=== PATIENT | female | born 1980 | race Caucasian/White ===

== ENCOUNTER 2018-02-23 05:12 | Emergency (ER) | payer OTHER ==
[~2018-02-23 05:12] MED LIST: PREDNISONE 20MG20 MG PO; VISTARIL25 MG PO
--- NOTE | 2018-02-23 05:49 | ED GENERAL ADULT ---
History of Present Illness General Chief Complaint: Abdominal Pain/Flank Pain Stated Complaint: L FLANK PAIN Source: patient Exam Limitations: no limitations Allergies Coded Allergies: NO KNOWN ALLERGIES (05/14/13) Triage Nurses Notes Reviewed? yes Onset: Abrupt Duration: hour(s): Timing: recent history HPI: 02/23/18 5:18 AM 38-year-old female presents to the emergency department with sudden onset of left-sided flank pain. According to the patient she was in her usual state of health until earlier this morning when she developed severe left-sided flank pain. She took 3 Advil with some relief. She does admit to some urinary hesitancy. She denies any fever. She admits to nausea. (Clay Sow DO) Vital Signs & Intake/Output Vital Signs & Intake/Output Vital Signs Date Time Temp Pulse Resp B/P B/P Pulse O2 O2 Flow FiO2 Mean Ox Delivery Rate 02/23 0644 97.7 88 24 136/61 99 Room Air 02/23 0641 99 Room Air 02/23 0521 97.7 98 22 151/100 Reconcile Medications Hydrocodone/Acetaminophen ([place] 5-325 Tablet) 5 MG-325 MG TABLET 1 TAB PO Q6P PRN KIDNEY STONE Hydroxyzine Pamoate (Vistaril) 25 MG CAP 1 CAP PO TID PRN ALLERGIC REACTION TAKE 1 TABLET NEEDED FOR ITCHING OR SWELLING Ketorolac Tromethamine 10 MG TABLET 1 TAB PO Q6P PRN KIDNEY STONE PATIENT RECEIVED IM KETOROLAC IN THE EMERGENCY DEPARTMENT Ondansetron (Zofran Odt) 4 MG TAB.RAPDIS 1 TAB SL TID NAUSEA Prednisone 20 MG TAB 2 TAB PO DAILY ALLERGIC REACTION TAKE 2 TABLETS DAILY FOR 5 DAYS. FIRST DOSE START TOMORROW (Ami SEE,Clay Chapa) Past History Travel History Traveled to [place] past 21 day No Medical History Any Pertinent Medical History? 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 No (Clay Sow DO) Review of Systems Review of Systems Constitutional: Denies: fever. EENTM: Denies: visual changes. Respiratory: Denies: short of breath. Cardiovascular: Denies: chest pain. GI: Reports: abdominal pain. Genitourinary: Reports: dysuria, hesitation. Musculoskeletal: Reports: back pain. Skin: Reports: no symptoms. Neurological/Psychological: Reports: no symptoms. Hematologic/Endocrine: Reports: no symptoms. Immunologic/Allergic: Reports: no symptoms. (Clay Sow DO) Physical Exam Physical Exam General Appearance: well developed/nourished, alert, awake, anxious, moderate distress Head: atraumatic, normal appearance Eyes: Bilateral: normal appearance, PERRL, EOMI. Ears, Nose, Throat: normal pharynx, normal ENT inspection, hearing grossly normal Neck: normal inspection, supple Respiratory: normal breath sounds, chest non-tender, no respiratory distress Cardiovascular: regular rate/rhythm Peripheral Pulses: 4+ radial (R), 4+ radial (L) Gastrointestinal: non-tender Back: CVA tenderness (L) Extremities: no edema Neurologic/Psych: no motor/sensory deficits, awake, alert, oriented x 3 Skin: intact, normal color, warm/dry Core Measures ACS in differential dx? No CVA/TIA Diagnosis: No Sepsis Present: No Sepsis Focused Exam Completed? No (Clay Sow DO) Progress Differential Diagnoses I considered the following diagnoses in my evaluation of the patient: [ Ureterolithiasis, pyelonephritis, diverticulitis] Initial ED EKG: none (Clay Sow DO) Plan of Care: Orders Procedure Date/time Status URINE 02/23 05 Complete URINALYSIS 02/23 05 Complete LIPASE 02/23 05 Complete COMPREHENSIVE METABOLIC PANEL 02/23 05 Complete CBC WITHOUT DIFFERENTIAL 02/23 543 Complete Current Medications Sig/Nadya Start time Last Medication Dose Stop Time Status Admin Ondansetron HCl 4 MG ONCE ONE 02/23 0800 AC (Zofran) 02/23 0801 Laboratory Tests 02/23/18 0554: Urinalysis LIGHT H, Urine Color STRAW, Urine Clarity CLEAR, Urine pH 6.0, Ur Specific [place] 1.025, Urine Protein NEG, Urine Ketones NEG, Urine Nitrite NEG, Urine Bilirubin NEG, Urine Urobilinogen 0.2, Ur Leukocyte Esterase TRACE H, Ur Microscopic SEDIMENT EXAMINED, Urine RBC 5-10 H, Urine WBC 1-3 H, Ur Epithelial Cells MANY H, Urine Bacteria MOD H, Urine Mucus MOD H, Urine Hemoglobin MOD H, Urine Glucose NEG, Urine Test NEGATIVE 02/23/18 0545: Anion Gap 12, Estimated GFR > 60, BUN/Creatinine Ratio 22.9, Glucose 99, Calcium 9.1, Total Bilirubin 0.6, AST 21, ALT 29, Alkaline Phosphatase 40, Total Protein 6.9, Albumin 3.9, Globulin 3.0, Albumin/Globulin Ratio 1.3, Lipase 88, CBC w Diff NO MAN DIFF REQ, RBC 4.16 L, MCV 96.3, MCH 32.8 H, MCHC 34.1, RDW 12.4, MPV 7.7, Gran % 50.8, Lymphocytes % 38.6, Monocytes % 6.2, Eosinophils % 3.9, Basophils % 0.5, Absolute Granulocytes 3.1, Absolute Lymphocytes 2.3, Absolute Monocytes 0.4, Absolute Eosinophils 0.2, Absolute Basophils 0 (Ami SEE,Clay Chapa) Departure Departure Disposition: STILL A PATIENT Condition: Stable Referrals: Donnie SEE,Antonio Horton (PCP/Family) Departure Forms: Customer Survey General Discharge Information Comments The patient was signed out to Dr. Mueller at 7 AM. PATIENT: GARCIA VARGAS PRESENT AGE: 38 PATIENT ACCOUNT NO: [id number] : 81 LOCATION: [facility] ORDERING PHYSICIAN: Clay Sow DO SERVICE DATE: 02/23/18 EXAM TYPE: CAT - CT ABD & PELVIS W/O IV CONTRAS EXAMINATION: CT ABDOMEN AND PELVIS WITHOUT CONTRAST CLINICAL INFORMATION: Abdominal pain. Renal colic. COMPARISON: None TECHNIQUE: Multidetector volumetric imaging was performed from the superior aspect of the liver through the pubic symphysis. Sagittal and coronal reformatted images were obtained on the technologist's workstation. DLP: 277.65 mGy-cm FINDINGS: LUNG BASES: The visualized lung bases are unremarkable. LIVER, GALLBLADDER, AND BILIARY TREE: The liver is normal in size, shape, and attenuation. No focal hepatic lesion or biliary ductal dilatation is present. The gallbladder is unremarkable with no evidence of radiopaque gallstones, gallbladder wall thickening, or obvious pericholecystic inflammatory changes. PANCREAS: Unremarkable. SPLEEN: Unremarkable. ADRENAL GLANDS: Unremarkable. KIDNEYS AND URETERS: There is mild left hydroureteronephrosis. A calcification in the region of the ureterovesical junction is consistent with obstructing calculus measuring 0.3 cm. No intrarenal calculi are demonstrated. The right kidney is unremarkable. No focal parenchymal abnormality is demonstrated. BLADDER: The bladder is decompressed. No abnormality is seen. GASTROINTESTINAL TRACT: The stomach and duodenum are unremarkable. No abnormality of the small bowel or mesentery is demonstrated. There is moderate stool through the course the colon. The colon is otherwise unremarkable. The appendix is normal. ABDOMINAL WALL: No significant hernia is appreciated. LYMPH NODES: Normal. VASCULAR: Limited assessment without contrast. No abnormality is seen. PELVIC VISCERA: Unremarkable. OSSEOUS STRUCTURES: Unremarkable. IMPRESSION: 1. Obstructing 0.3 cm calculus at the left UVJ with mild hydroureteronephrosis. 2. No other abnormality. DICTATED BY: Génesis Paula MD DATE/TIME DICTATED:02/23/18716 NEUROSURGERY PHYSICIAN:GARRETT DATE/TIME TRANSCRIBED:02/23/18716 CONFIDENTIAL, DO NOT COPY WITHOUT APPROPRIATE AUTHORIZATION. <Electronically signed in Other Vendor System> SIGNED BY: Génesis Paula MD [id number] (Clay Sow DO) Departure Clinical Impression Primary Impression: Renal colic on left side Additional Instructions: You have a left kidney stone. Ketorolac as needed for pain. Add [place] if necessary. Follow-up with your primary care physician or the urologist listed this week for reevaluation. Return if any concerns or sudden worsening. Please note that there might be incidental findings in your evaluation that are unrelated to the current emergency department visit. Please notify your primary care doctor about this emergency department visit in order to obtain and review all of the testing performed so that these incidental findings can be monitored as needed. If you had an x-ray performed, please understand that some fractures or other findings may not be seen on the initial set of x-rays. If your symptoms persist you might need a repeat set of x-rays to check for such a fracture. If you had a laceration evaluated, please understand that foreign bodies such as glass or wood may not be visible to the naked eye or on plain x-rays. If the wound becomes red, swollen, increasingly more painful or if there is any drainage from the wound, please have it reevaluated by a physician for the possibility of a retained foreign body. If you're unable to follow up as outlined in the discharge instructions please return to the emergency department. Thank you for choosing the [facility] Emergency Department for your care. It was a pleasure to serve you today. Clay Mueller M.D. [facility] Prescriptions: Current Visit Scripts Ketorolac Tromethamine 1 TAB PO Q6P PRN KIDNEY STONE #16 TAB PATIENT RECEIVED IM KETOROLAC IN THE EMERGENCY DEPARTMENT Hydrocodone/Acetaminophen ([place] 5-325 Tablet) 1 TAB PO Q6P PRN KIDNEY STONE #20 TAB Ondansetron (Zofran Odt) 1 TAB SL TID #10 TAB (Ami SEE,Clay Chapa) Critical Care Note Critical Care Note Critical Care Time: non-applicable (Clay Sow DO)
[2018-02-23 05:54] LABS: ABSOLUTE BASOPHIL COUNT 0 /CUMM (0.0-0.2); ABSOLUTE EOSINOPHIL COUNT 0.2 /CUMM (0.0-0.7); ABSOLUTE GRANULOCYTE CT 3.1 /CUMM (1.4-6.5); ABSOLUTE LYMPH COUNT 2.3 /CUMM (1.2-3.4); ABSOLUTE MONOCYTE COUNT 0.4 /CUMM (0.10-0.60); BASOPHIL % 0.5 % (0.0-2.0); EOSINOPHIL % 3.9 % (0-5); GRANULOCYTE % 50.8 % (42.2-75.2); MEAN CORPUSCULAR HGB 32.8 PG (27.0-31.0); MEAN CORPUSCULAR HGB CONC 34.1 G/DL (33.0-37.0); MEAN CORPUSCULAR VOLUME 96.3 FL (81.0-99.0); MEAN PLATELET VOLUME 7.7 FL (7.4-10.4); PLATELET COUNT 318 /CUMM (130-400); RBC DISTRIBUTION WIDTH 12.4 % (11.5-14.5); RED BLOOD CELL CT 4.16 /CUMM (4.20-5.40)
[2018-02-23 06:44] VITALS: BP 136/61
--- NOTE | 2018-02-23 07:34 | CT SCAN REPORT ---
EXAMINATION: CT ABDOMEN AND PELVIS WITHOUT CONTRAST CLINICAL INFORMATION: Abdominal pain. Renal colic. COMPARISON: None TECHNIQUE: Multidetector volumetric imaging was performed from the superior aspect of the liver through the pubic symphysis. Sagittal and coronal reformatted images were obtained on the technologist's workstation. DLP: 277.65 mGy-cm FINDINGS: LUNG BASES: The visualized lung bases are unremarkable. LIVER, GALLBLADDER, AND BILIARY TREE: The liver is normal in size, shape, and attenuation. No focal hepatic lesion or biliary ductal dilatation is present. The gallbladder is unremarkable with no evidence of radiopaque gallstones, gallbladder wall thickening, or obvious pericholecystic inflammatory changes. PANCREAS: Unremarkable. SPLEEN: Unremarkable. ADRENAL GLANDS: Unremarkable. KIDNEYS AND URETERS: There is mild left hydroureteronephrosis. A calcification in the region of the ureterovesical junction is consistent with obstructing calculus measuring 0.3 cm. No intrarenal calculi are demonstrated. The right kidney is unremarkable. No focal parenchymal abnormality is demonstrated. BLADDER: The bladder is decompressed. No abnormality is seen. GASTROINTESTINAL TRACT: The stomach and duodenum are unremarkable. No abnormality of the small bowel or mesentery is demonstrated. There is moderate stool through the course the colon. The colon is otherwise unremarkable. The appendix is normal. ABDOMINAL WALL: No significant hernia is appreciated. LYMPH NODES: Normal. VASCULAR: Limited assessment without contrast. No abnormality is seen. PELVIC VISCERA: Unremarkable. OSSEOUS STRUCTURES: Unremarkable. IMPRESSION: 1. Obstructing 0.3 cm calculus at the left UVJ with mild hydroureteronephrosis. 2. No other abnormality.
[2018-02-23] MEDS ORDERED: ZOFRAN ODT4 M1 SL (07:49)
[2018-02-23] MEDS ORDERED: NORCO 5-325 TA1 EACH PO (07:49)
[2018-02-23] MEDS ORDERED: KETOROLAC TROME10 M1 PO (07:49)
== END 2018-02-23 08:13 ==
LOC: ERH 05:12
PROVIDERS: Emergency Medicine
DX: N23 Unspecified renal colic (principal); R10.9 Unspecified abdominal pain; R39.11 Hesitancy of micturition; R11.0 Nausea
CPT/HCPCS: 74176; 81001; 81025; 96361; 96374; 96375; J0131; J1885; J2550; J3101